=== PATIENT | male | born 1955 | race Caucasian/White ===

== ENCOUNTER 2023-12-15 11:28 | Observation (INO) | payer MEDICARE, OTHER ==
[2023-12-15 14:00] VITALS: BMI 22.9
[2023-12-15] MEDS ORDERED: Ondansetron PF 4 MG/2 ML Vial IVP PRN (14:12)
[2023-12-15] MEDS ORDERED: Nitroglycerin 0.4 MG TAB (25 Tab Bottle) SL PRN (14:12)
[2023-12-15] MEDS: Pantoprazole DR 40 MG TAB PO SCH (15:13)
[2023-12-15] MEDS: Acetaminophen 325 MG TAB PO SCH (15:13)
[2023-12-15] MEDS: Multivitamins, Adult 10 ML, Folic Acid 1 MG, Thiamine HCl 100 MG, Admixture Fee 1 EACH ... IV SCH (15:14)
[2023-12-15 15:30] LABS: Troponin I Less than 0.010 ng/mL (< 0.028)
[2023-12-15] MEDS: Metoprolol Tartrate 25 MG TAB PO SCH (20:25)
[2023-12-16 03:55] LABS: #Basophils 0.07 10x3/uL (0.0-0.2); #Eosinphils 0.22 10x3/uL (0.0-0.5); #Monocytes 1.24 10x3/uL (0.0-1.1); #Neutrophils 6.72 10x3/uL (1.5-8.4); %Basophils 0.7 % (0.0-2.0); %Eosinophils 2.1 % (0.0-6.0); %Lymphocytes 20.1 % (18.0-47.0); %Neutrophils 64.7 % (40.0-75.0); Hematocrit 43.5 % (38.8-50.0); Hemoglobin 14.9 g/dL (13.5-17.5); Mean Corpuscular HGB CONC 34.3 g/dL (32.0-36.0); Mean Corpuscular Hemoglobin 33.9 pg (27.0-33.0); Mean Corpuscular Volume 99.1 fL (81.2-95.1); Mean Platelet Volume 10.3 fL (7.4-10.4); Platelet Count 202 10x3/uL (150-450); RBC Distribution Width 13.9 % (11.5-14.5); Red Blood Cell (RBC) Count 4.39 10x6/uL (4.32-5.72); White Blood Cell (WBC) Count 10.4 10x3/uL (3.5-10.5)
[2023-12-16 04:14] LABS: Anion Gap 12 mmol/L (10-20); BUN (Urea Nitrogen) 9 mg/dL (8.4-25.7); Calc. Creatinine Clearance 85 mL/min (70-130); Calcium 8.7 mg/dL (7.8-10.44); Carbon Dioxide 27 mmol/L (23-31); Cardiac Risk 3.2 (Less than 4.5); Chloride 104 mmol/L (98-107); Cholesterol 155 mg/dl (< 200 Desired); Estimated GFR 94; Glucose 113 mg/dL (80-115); HDL Cholesterol 48 mg/dL (>60 Neg Risk); LDL Cholesterol, Calculated 90 mg/dL; Potassium 4.2 mmol/L (3.5-5.1); Sodium 139 mmol/L (136-145); Triglycerides 84 mg/dL (Less than 150)
[2023-12-16] MEDS: Aspirin Chewable 81 MG TAB PO SCH (08:33)
[2023-12-16] MEDS: Enoxaparin 40 MG (0.4 mL) SYRINGE SC SCH (08:33)
[2023-12-16 11:34] VITALS: BP 149/87; TEMP 97.9
== END 2023-12-16 13:30 | disposition home or self-care (01) ==
LOC: CSHTELE 13:52
PROVIDERS: ADMIT Internal Medicine; ATTEND Internal Medicine
PROC: B246ZZZ Ultrasonography of Right and Left Heart (ICD-10-PCS; principal; 2023-12-15)
DX: R07.2 Precordial pain (principal); F10.90 Alcohol use, unspecified, uncomplicated; E78.5 Hyperlipidemia, unspecified; I25.10 Atherosclerotic heart disease of native coronary artery without angina pectoris; Z98.890 Other specified postprocedural states; Z92.89 Personal history of other medical treatment; Z88.5 Allergy status to narcotic agent; Z79.899 Other long term (current) drug therapy
CPT/HCPCS: 80048; 80061; 83690; 84484; 85025; 93005; 93306; 94760; 94762; 96372; 96374; G0378 ×2; J1650; J3411; J7042; 36415; 93010